=== PATIENT | female | born 1980 | race Caucasian/White ===

== ENCOUNTER 2022-05-21 17:50 | Inpatient (IN) | payer OTHER, MEDICAID ==
[~2022-05-21] VITALS: Ht 167.6 cm; Wt 70.9 kg
[2022-05-21] MEDS ORDERED: LEVO150T PO (22:00)
[2022-05-21] MEDS: traZODone 50mg tablet PO PRN (22:30)
[2022-05-21] MEDS: hydrOXYzine 25 MG tablet PO PRN (22:30)
[2022-05-22] MEDS ORDERED: magnesium hydroxide 30ml (MOM) UD suspension PO PRN
[2022-05-22] MEDS ORDERED: acetaminophen 325mg tablet PO PRN ×2
[2022-05-22] MEDS ORDERED: loperamide 2mg capsule PO PRN
[2022-05-22] MEDS ORDERED: mag hydrox/Alum hydrox/simeth 30ml oral suspension PO PRN
--- NOTE | 2022-05-22 05:02 | NUR ---
ADMIT NOTE: Patient admitted from [facility]. She was placed on a 5150 for DTS as a result of a mental health disorder. She stated, "I'm fed up, and killing myself seems like the best idea at this point." She has a plan to OD on her pills. Patient presented to [facility] with SI and not feeling like herself. She reports having suicidal thoughts the last few months with a plan to OD on pills. Current life stressors include relationship difficulties with her , kids are telling her she makes them want to kill themselves, and she reports feeling dissociated from her body. She says that recently she has a hard time telling what's real or not, and it's like people are lying to her all the time. She reports that she's told she's not good enough and that she's too much by family members.
[2022-05-22] MEDS: levoTHYROXINE 75mcg tablet PO SCH (07:24)
[2022-05-22 08:00] VITALS: BP 138/68
[2022-05-22 08:57] LABS: CHOL/HDL RATIO 4.1 (0.00-4.99); CHOLESTEROL 234 MG/DL (0-200); HDL CHOLESTEROL 57 MG/DL (35-60); LDL CHOLESTEROL 150 MG/DL (50-100); TRIGLYCERIDES 75 MG/DL (20-135)
[2022-05-22 09:07] LABS: HEMOGLOBIN A1C 5.4 % (4.5-6.2)
[2022-05-22] MEDS ORDERED: docusate sod 100mg capsule PO ONE (09:35)
[2022-05-22] MEDS ORDERED: ondansetron 4mg rapidly disintigrating tab PO PRN (09:35)
--- NOTE | 2022-05-22 11:22 | NUR ---
Pt. attended group today. Todays group was about the difference between Growth Mindset vs. Fixed Mindset. We learned about the differences and then discussed what aspect of developing a growth mindset they wanted to work on. Pts could work on a vision page to integrate some of the lessons learned from today's group. Pt. engaged well in the group. She was very emotional at first, sharing that she had just had an argument with her on the telephone. She shared that she is going through a divorce and it has been very difficult. She still lives with her while they are . She shared things that she wants to do to work on her growth mindset which were appropriate to the topic. She also engaged in the Vision pages and appeared to really enjoy this activity. She shared that the things she needs to work on is getting new positive thoughts/tapes, she used her Vision page to put positive pictures and words to speak to herself about who she is truly is. She was alert and oriented X 4. Her mood was depressed with labile affect. Audra Santiago LCSW
[2022-05-22] MEDS: hydrOXYzine 25 MG tablet PO PRN ×2 (11:28→21:56)
[2022-05-22] MEDS ORDERED: LORazepam 1 MG tablet PO ONE (13:20)
[2022-05-22 13:34] LABS: BASOPHILS % (AUTO) 0.2 % (0-1); EOSINOPHILS # (AUTO) 0.1 X10'3 (0-0.9); EOSINOPHILS % (AUTO) 1.9 % (0-6); HEMATOCRIT 43.7 % (35.0-45.0); HEMOGLOBIN 14.5 g/dl (12.0-16.0); LYMPHOCYTES # (AUTO) 1.9 X10'3 (1.1-4.8); LYMPHOCYTES % (AUTO) 38.5 % (21-51); MEAN CORPUSCULAR HEMOGLOBIN 29.3 PG (27.0-31.0); MEAN CORPUSCULAR HGB CONC 33.1 g/dL (33.0-36.5); MEAN CORPUSCULAR VOLUME 88.5 FL (78-98); MEAN PLATELET VOLUME 8.6 FL (7.4-10.4); MONOCYTES # (AUTO) 0.2 X10'3 (0-0.9); MONOCYTES % (AUTO) 4.5 % (2-12); NEUTROPHILS # (AUTO) 2.7 X10'3 (1.8-7.7); NEUTROPHILS % (AUTO) 54.9 % (42-75); PLATELET COUNT 323 X10'3 (140-440); RED BLOOD COUNT 4.93 X10'6 (4.20-5.60); RED CELL DISTRIBUTION WIDTH 13.1 % (11.5-14.5); WHITE BLOOD COUNT 4.9 X10'3 (4.5-11.0)
[2022-05-22 13:47] LABS: ANION GAP 10 (8-16); BLOOD UREA NITROGEN 12 MG/DL (7-18); BUN/CREATININE RATIO 14.1 (6.6-38.0); CALCIUM 9.1 MG/DL (8.5-10.1); CHLORIDE 105 MMOL/L (99-107); CREATININE 0.85 MG/DL (0.40-0.90); GLUCOSE 211 MG/DL (70-104); SODIUM 139 MMOL/L (135-145); TOTAL CARBON DIOXIDE 23.8 MMOL/L (24-32); eGFR 73 ML/MIN
[2022-05-22 13:48] LABS: ALANINE AMINOTRANSFERASE 22 U/L (12-78); ALBUMIN 3.8 G/DL (3.4-5.0); ALBUMIN/GLOBULIN RATIO 1.1 (1.1-1.5); ALKALINE PHOSPHATASE 69 IU/L (46-116); ASPARTATE AMINO TRANSFERASE 15 U/L (10-37); TOTAL PROTEIN 7.2 G/DL (6.4-8.2)
--- NOTE | 2022-05-22 18:11 | NUR ---
Nursing Progress Note: Problem: Patient admitted from [facility]. She was placed on a 5150 for DTS as a result of a mental health disorder. She stated, "I'm fed up, and killing myself seems like the best idea at this point." She has a plan to OD on her pills. Patient presented to [facility] with SI and not feeling like herself. She reports having suicidal thoughts the last few months with a plan to OD on pills. Current life stressors include relationship difficulties with her , kids are telling her she makes them want to kill themselves. Todays complaints: 1.Pt.s is her, pt. reports feeling so anxious Im numb. 2.Constipation 3.Nausea Intervention: Maintained a safe and supportive environment, administered scheduled and PRN medications. provided clear and simple instructions, encouraged going to group, provided active listening and positive encouragement, encouraged participation on the unit, provided redirection and clear boundaries. Received orders for PRN Colace, Zofran, and Ativan. Response: Pt. asleep at start of shift. Pt. awoke before breakfast and observed sitting in community room watching TV with female peer and coloring. After breakfast pt. had x1 emesis. Pt. refused Zofran as symptoms subsided. Pt. went to group. Pt. received MOM and Colace for c/o constipation x2 days. Pt. talking on phone with , pt. becomes angry and overheard talking about divorce. Pt. yelling at times. Pt. received Atarax 50mg po with minimal effect. Pt. received one time dose of Ativan 1mg with good effect. Pt. slept in the afternoon. Plan: Pt. requires crisis stabilization. pt. continues to require a safe and supportive environment
[2022-05-22] MEDS: docusate sod 100mg capsule PO SCH (20:27)
[2022-05-22 20:37] VITALS: BP 113/68
[2022-05-22] MEDS: divalproex sod 250mg ER (24-hour) tablet PO SCH (21:53)
[2022-05-22] MEDS: prazosin 1mg capsule PO SCH (21:54)
[2022-05-22] MEDS: traZODone 50mg tablet PO PRN (21:55)
--- NOTE | 2022-05-23 02:27 | NUR ---
Nursing Progress Note: Problem: Patient admitted from [facility]. She was placed on a 5150 for DTS as a result of a mental health disorder. She stated, "I'm fed up, and killing myself seems like the best idea at this point." She has a plan to OD on her pills. Intervention: Maintained a safe and supportive environment, administered scheduled and PRN medications. provided clear and simple instructions, encouraged going to group, provided active listening and positive encouragement, encouraged participation on the unit, provided redirection and clear boundaries. Response: Patient was in the rec room reading a book. She reports that her day was ok, but a phone call with her was not good. She believes that divorce is inevitable. 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 "My whole identity is being his caregiver. I have no identity of my own, and I've been stifled by him to create my own. I just want to be able to be me." Patient read all evening, "something I never have time for at home." She says she still has fleeting thoughts of suicide, but denies other MH symptoms. Patient started Depakote and Prazosin tonight. She also used PRN Atarax and Trazodone with good effect. She read until falling asleep. Plan: Pt. requires crisis stabilization. pt. continues to require a safe and supportive environment
[2022-05-23] MEDS: levoTHYROXINE 75mcg tablet PO SCH (07:21)
[2022-05-23] MEDS: atorvastatin 20mg tablet PO SCH (07:21)
[2022-05-23] MEDS: docusate sod 100mg capsule PO SCH ×2 (07:21→20:15)
[2022-05-23 07:48] VITALS: BP 129/76
--- NOTE | 2022-05-23 08:01 | NUR ---
Nutrition consult regarding multivitamin supplement for pt w/ h/o gastric bypass. Communicated w/ RN recommendation for MVI w/ Iron and Vit B12, though up to MD discretion. Addendum: 05/23/22 at [address] Amended: Links added.
--- NOTE | 2022-05-23 14:02 | NUR ---
Pt. attended group today. Today we discussed Wellness and utilized the Self Care Wheel to help Patients determine the wellness/self-care activities they enjoy in each domain presented in the wheel. The four domains are the physical, spiritual, emotional and physical. We then did an art expression called Path to Wellness. Pt. left the group after about ten minutes as she became ill and needed to throw up, she came back to the group towards the end and took a part of the art expression. She shared her art appropriately with the group. She was alert and oriented X 4. Her thought content and thought process were WNL. Her mood appeared a bit anxious with a restricted affect. Her demeanor was calm and pleasant. MINDY HollandW
--- NOTE | 2022-05-23 16:07 | NUR ---
Alysia is a 41 y/o female who was placed on 179 at [facility] for suicidal ideation. She self-presented to the ED with SI with a plan to overdose on her medications and was placed on 515 for danger to self. Alysia reported multiple stressors which contributed to her feeling suicidal. She reported issues with her as one of the primary stressors. 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 They have a polyamorous relationship and are involved in the "[employer] community". She and her boyfriend just broke up and her currently has a girlfriend. They like to host parties for their community. Alysia is currently a student at [employer] in the [employer] program and will be graduating in a month with a BA in Psychology. She reported she has had multiple medical issues after having gastric bypass surgery 2020. She had surgery (unknown what for) 2 weeks ago. She reported this is her first psychiatric hospitalization as an adult. She was hospitalized at age 13 post suicide attempt via overdose. She reported she has been seeing a therapist for the past 3 years at [facility]. She reported she has been diagnosed with Borderline Personality Disorder, Bipolar, and ADHD. She currently does not have a psychiatrist. She does have a primary care provider at [facility] in [place]. Alysia denied any current SI or HI. She was goal directed and future oriented. She reported she and her spoke earlier today and they are in a better space and she wants to return home. MOLINA Luciano Addendum: 05/23/22 at 1607 by Ilene OROURKE Amended: Links added.
--- NOTE | 2022-05-23 17:35 | NUR ---
Nursing Progress Note: Problem: Patient admitted from [facility]. She was placed on a 5150 for DTS as a result of a mental health disorder. She stated, "I'm fed up, and killing myself seems like the best idea at this point." She has a plan to OD on her pills. Patient presented to [facility] with SI and not feeling like herself. She reports having suicidal thoughts the last few months with a plan to OD on pills. Current life stressors include relationship difficulties with her , kids are telling her she makes them want to kill themselves. Todays complaints: 1.Pt. requesting discharge so she can be home with her family 3.Nausea Intervention: Maintained a safe and supportive environment, administered scheduled and PRN medications. Provided clear and simple instructions, encouraged going to group, provided active listening and positive encouragement, encouraged participation on the unit, provided redirection and clear boundaries. Pt. received Zofran ODT for nausea. Response: Pt. asleep at start of shift. Pt. awoke before breakfast and observed sitting in community room watching TV with female peer and coloring. Pt. took all medications and ate all meals in the community room. Pt. went to group. Pt. reported normal BM. Pt. received PRN Zofran with good effect. Pt. did not have outbursts on the phone today. Pt. was observed socializing with peers in the milieu and reading in her room. Pt. accepting of continued hospitalization. Pt. showered in the afternoon. Plan: Pt. requires crisis stabilization. pt. continues to require a safe and supportive environment
[2022-05-23 20:00] VITALS: BP 112/71
[2022-05-23] MEDS: traZODone 50mg tablet PO PRN (20:15)
[2022-05-23] MEDS: prazosin 1mg capsule PO SCH (20:15)
[2022-05-23] MEDS: divalproex sod 250mg ER (24-hour) tablet PO SCH (20:15)
--- NOTE | 2022-05-24 00:26 | NUR ---
Nursing Progress Note: Alysia Problem: Patient admitted from [facility]. She was placed on a 5150 for DTS as a result of a mental health disorder. She stated, "I'm fed up, and killing myself seems like the best idea at this point." She has a plan to OD on her pills. Patient presented to [facility] with SI and not feeling like herself. She reports having suicidal thoughts the last few months with a plan to OD on pills. Current life stressors include relationship difficulties with her , kids are telling her she makes them want to kill themselves. Intervention: Maintained a safe and supportive environment, administered scheduled and PRN medications. Provided clear and simple instructions, encouraged going to group, provided active listening and positive encouragement, encouraged participation on the unit, provided redirection and clear boundaries. Response: Pt. in the community room with peers watching TV. Pt states she is ready to go home. She is a student at [employer] and will graduate in 1 month in the [employer] program. Pt. is pleasant and cooperative with care. Pt took all HS medications and participated in snacks. Denies MH symptoms at this time. Pt to bed shortly after med pass. Plan: Pt. requires crisis stabilization. pt. continues to require a safe and supportive environment
[2022-05-24] MEDS: docusate sod 100mg capsule PO SCH (07:35)
[2022-05-24] MEDS: atorvastatin 20mg tablet PO SCH (07:36)
[2022-05-24] MEDS: levoTHYROXINE 75mcg tablet PO SCH (07:36)
[2022-05-24] MEDS ORDERED: multivitamins, therapeutics tablet PO SCH (08:00)
[2022-05-24] MEDS ORDERED: ferrous sulfate 325mg tablet PO SCH (08:00)
[2022-05-24] MEDS ORDERED: cyanocobalamin 500mcg tablet PO SCH (08:00)
[2022-05-24] MEDS ORDERED: ATOR20TA66 PO (10:56)
[2022-05-24] MEDS ORDERED: DIVA250T8 PO (10:56)
[2022-05-24] MEDS ORDERED: FER325T PO (10:56)
[2022-05-24] MEDS ORDERED: PRAZ1CAP5 PO (10:56)
[2022-05-24] MEDS ORDERED: TRAZ-251 PO (10:56)
--- NOTE | 2022-05-24 14:29 | NUR ---
Discharge Note: Paperwork and follow up plan reviewed with the patient who is agreeable to discharge. Escorted off the unit with all of her belongings by staff at 14:05 and is picked up by a cab to be taken to her car at [facility]. Discharged with the following instructions: Follow-Up: Patient has been scheduled/referred to the following providers for post-hospital discharge and aftercare treatment. Primary Care Provider: Appointment: 06/13/22 at 10 AM with JENNI Holley [facility] [address] [place] [id number] Therapist: Appointment: 05/25/22 with [facility] [address] [address] [facility] Cab ride to [facility] where her vehicle is Patient given community crisis services information and National suicide hotline handout. Resources for education regarding mental illness: [address] [address] For urgent mental health crisis needs please contact Mobile Crisis Outreach Team Saturday through Saturday 8:30am to 5:00pm. . Mobile Crisis Outreach Team [address] [place] [id number] Urgent Out-patient Mental Health Services 365 Days A Year: [address] [address] Hours: Mon thru Fri 12pm-9pm Weekends 11am-9pm
== END 2022-05-24 14:10 | disposition home or self-care (01) | DRG 885 ==
LOC: ADULT MH 20:39
PROVIDERS: ADMIT Psychiatry & Neurology Psychiatry; ATTEND Psychiatry & Neurology Psychiatry
DX: F31.9 Bipolar disorder, unspecified (principal); R45.851 Suicidal ideations; F17.200 Nicotine dependence, unspecified, uncomplicated; F43.10 Post-traumatic stress disorder, unspecified; R45.84 Anhedonia; G89.29 Other chronic pain; G47.30 Sleep apnea, unspecified; E03.9 Hypothyroidism, unspecified; E78.5 Hyperlipidemia, unspecified; Z88.8 Allergy status to other drugs, medicaments and biological substances; Z91.51 Personal history of suicidal behavior; Z98.84 Bariatric surgery status; Z71.6 Tobacco abuse counseling
CPT/HCPCS: 36415; 80053; 80061; 83036; 84443; 85025; 87081; Q0177